=== PATIENT | male | born 1950 | race Caucasian/White ===

== ENCOUNTER → 2020-01-06 | Outpatient (CLI) | payer MEDICARE | END | disposition home or self-care (01) | LOC: ROC 12-14 11:33 | PROVIDERS: ATTEND Radiology Radiation Oncology | DX: C61 Malignant neoplasm of prostate (principal) | CPT/HCPCS: G0463 ==

== ENCOUNTER 2020-01-13 07:23 | Outpatient (CLI) | payer MEDICARE ==
[2020-01-13] MEDS ORDERED: DEXTROSE 5% 1,000 ML IV ONE (07:24)
[2020-01-13] MEDS ORDERED: DEXTROSE 5% ONE (08:25)
[2020-01-13] MEDS ORDERED: ONDANSETRON ODT 4 MG ONE (08:25)
== END 2020-01-13 23:59 | disposition home or self-care (01) ==
LOC: ROC 07:23
PROVIDERS: ATTEND Radiology Radiation Oncology
DX: C61 Malignant neoplasm of prostate (principal); R55 Syncope and collapse; R11.0 Nausea
CPT/HCPCS: 96360; 96361; J7070; Q0162

== ENCOUNTER 2020-01-25 07:19 | Outpatient (CLI) | payer MEDICARE ==
[2020-01-25] MEDS ORDERED: LIDOCAINE/PF 1%, 30ML ONE (08:00)
== END 2020-01-25 23:59 | disposition home or self-care (01) ==
LOC: ROC 07:19
PROVIDERS: ATTEND Radiology Radiation Oncology
DX: C61 Malignant neoplasm of prostate (principal); Z79.899 Other long term (current) drug therapy
CPT/HCPCS: 55876; 76942; 77332; A4648

== ENCOUNTER → 2020-05-16 | Outpatient (CLI) | payer MEDICARE | END | disposition home or self-care (01) | LOC: ROC 07:55 | PROVIDERS: ATTEND Radiology Radiation Oncology | DX: Z08 Encounter for follow-up examination after completed treatment for malignant neoplasm (principal); Z85.46 Personal history of malignant neoplasm of prostate | CPT/HCPCS: 99212; G0463 ==

== ENCOUNTER 2020-11-11 07:23 | Outpatient (CLI) | payer MEDICARE | END 2020-11-11 23:59 | disposition home or self-care (01) | LOC: ROC 07:23 | PROVIDERS: ATTEND Radiology Radiation Oncology | DX: Z08 Encounter for follow-up examination after completed treatment for malignant neoplasm (principal); Z85.46 Personal history of malignant neoplasm of prostate | CPT/HCPCS: G0463 ==